=== PATIENT | male | born 1970 | race Caucasian/White ===

== ENCOUNTER → 2017-08-15 | Outpatient (CLI) | payer OTHER ==
[2017-08-15 08:06] LABS: Blood Urea Nitrogen 17 mg/dL (9-20)
--- NOTE | 2017-08-15 10:42 | CT ---
EXAMINATION TYPE: CT abdomen pelvis w con DATE OF EXAM: 08/15/2017 COMPARISON: NONE HISTORY: Gross Hematuria CT DLP: 833.8 mGycm, Automated Exposure Control for Dose Reduction was Utilized. CONTRAST: CT scan of the abdomen and pelvis is performed with oral and with IV Contrast, patient injected with 100 mL of Isovue 300. FINDINGS: LUNG BASES: No significant abnormality is appreciated. LIVER/GB: No significant abnormality is appreciated. PANCREAS: No significant abnormality is seen. SPLEEN: No significant abnormality is seen. ADRENALS: No significant abnormality is seen. KIDNEYS: There is partially exophytic heterogeneous enhancing solid mass laterally lower pole level r ight kidney measuring roughly 9.0 x 7.8 cm axial image 38, craniocaudal dimension is roughly 7.5 cm c oronal image 61 consistent with renal cell carcinoma. There is symmetric cortical medullary uptake an d excretion from both kidneys without evidence of hydronephrosis bilaterally. No intraluminal mass in the bladder is present. Some prominent collateral vessels probable draining veins inferior to right kidney are noted. BOWEL: Oral contrast does not reach colonic level. There is fecal material in distal and terminal ile um consistent with delayed passage of ingested material 2 colonic level. There is no suspicious small or large bowel dilatation. There is mild prominence of fecal material in the right and transverse co bhavani. PROSTATE/SEMINAL VESICLES: No gross abnormality seen. LYMPH NODES: No greater than 1cm abdominal or pelvic lymph nodes are appreciated. OSSEOUS STRUCTURES: There is mild facet arthropathy lower lumbar levels. OTHER: No significant additional abnormality is seen. IMPRESSION: Large hypervascular solid lower pole lateral right renal mass consistent with renal cell carcinoma. Surgical referral advised. A Yellow level critical message alert has been initiated for Kenan Foreman MD via the [employer] Critical Results System on 08/15/2017 10:40 AM. This message alert has been sent to Kenan Foreman MD via the preferences provided by the clinician for the receipt of Radiology Critical Findings. Mess age ID [id number].
== END | disposition home or self-care (01) ==
LOC: RADCTMAIN 06:55
PROVIDERS: ATTEND Urology
DX: N28.89 Other specified disorders of kidney and ureter (principal)
CPT/HCPCS: 82565; 84520; 74177; 36415; Q9967

== ENCOUNTER → 2017-08-30 | Outpatient (CLI) | payer OTHER ==
[2017-08-30 08:32] LABS: Basophils % (A) 0 %; Eosinophils # (A) 0.2 k/uL (0-0.7); Eosinophils % (A) 2 %; HCT 48.4 % (39.0-53.0); HGB 15.8 gm/dL (13.0-17.5); Lymphocytes # (A) 1.4 k/uL (1.0-4.8); Lymphocytes % (A) 19 %; MCH 28.3 pg (25.0-35.0); MCHC 32.5 g/dL (31.0-37.0); MCV 87.1 fL (80.0-100.0); Mean Platelet Volume 7.1; Monocytes # (A) 0.5 k/uL (0-1.0); Monocytes % (A) 7 %; Neutrophils # (A) 5.4 k/uL (1.3-7.7); Neutrophils % (A) 70 %; Platelet Count 211 k/uL (150-450); RBC 5.56 m/uL (4.30-5.90); RDW 13.5 % (11.5-15.5); WBC 7.7 k/uL (3.8-10.6)
--- NOTE | 2017-08-30 09:03 | XR ---
EXAMINATION TYPE: XR chest 2V DATE OF EXAM: 08/30/2017 COMPARISON: NONE HISTORY: Renal mass TECHNIQUE: Frontal and lateral views of the chest are obtained. FINDINGS: There is no focal air space opacity, pleural effusion, or pneumothorax seen. The cardiac silhouette size is within normal limits. The osseous structures are intact. IMPRESSION: No acute cardiopulmonary process.
[2017-08-30 09:24] LABS: ALT 28 U/L (21-72); AST 23 U/L (17-59); Albumin 4.4 g/dL (3.5-5.0); Alkaline Phosphatase 60 U/L (38-126); Anion Gap 14 mmol/L; Blood Urea Nitrogen 20 mg/dL (9-20); Calcium 9.4 mg/dL (8.4-10.2); Carbon Dioxide 24 mmol/L (22-30); Chloride 101 mmol/L (98-107); Glucose 86 mg/dL (74-99); Potassium 4.5 mmol/L (3.5-5.1); Sodium 139 mmol/L (137-145); Total Bilirubin 0.4 mg/dL (0.2-1.3); Total Protein 6.8 g/dL (6.3-8.2)
== END | disposition home or self-care (01) ==
LOC: LABPAT 07:15
PROVIDERS: ATTEND Urology
DX: Z01.818 Encounter for other preprocedural examination (principal); Z01.812 Encounter for preprocedural laboratory examination; D41.01 Neoplasm of uncertain behavior of right kidney; N28.89 Other specified disorders of kidney and ureter
CPT/HCPCS: 71046; 80053; 85025; 86850; 86900; 86901; 93005

== ENCOUNTER 2017-09-07 10:38 | Inpatient (IN) | payer OTHER ==
[2017-08-26 09:35] VITALS: BMI 27.9
--- NOTE | 2017-09-07 06:59 | P.GSHP ---
History of Present Illness H&P Date: 09/07/17 Chief Complaint: Gross hematuria The patient is a 47 year old male who presented with gross hematuria, associated with right-sided low back discomfort. The hematuria has resolved. CT scan shows a 9 cm right lower pole renal mass, consistent with renal cell carcinoma. - Constitutional Constitutional: Denies chills, Denies fever - Cardiovascular Cardiovascular: Denies chest pain, Denies shortness of breath - Gastrointestinal Gastrointestinal: Denies nausea, Denies vomiting - Genitourinary (Female) Genitourinary: Reports as per HPI Past Medical History Past Medical History: Skin Disorder Additional Past Medical History / Comment(s): hx psoriasis, tumor in rt kidney History of Any Multi-Drug Resistant Organisms: None Reported Past Surgical History: Orthopedic Surgery Additional Past Surgical History / Comment(s): titanium elida rt leg (fx) Past Anesthesia/Blood Transfusion Reactions: No Reported Reaction Smoking Status: Former smoker - Past Family History Mother Family Medical History: No Reported History Medications and Allergies Home Medications Medication Instructions Recorded Confirmed Type No Known Home Medications 08/26/17 08/26/17 History Allergies Allergy/AdvReac Type Severity Reaction Status Date / Time No Known Allergies Allergy Verified 08/26/17 09:26 Surgical - Exam - General well developed, well nourished, no distress - Neck no masses, trachea midline - Respiratory normal respiratory effort, clear to auscultation - Cardiovascular Rhythm: regular Abnormal Heart Sounds: no systolic murmur - Abdomen Abdomen: soft, non tender, no guarding, no rigid, no rebound Hernia: none - Genitourinary normal penis with no external lesions, testicles non-tender - Rectum Rectum: normal sphincter tone, no masses - Neurologic normal coordination - Musculoskeletal normal gait - Psychiatric oriented to time, oriented to person, oriented to place, speech is normal, memory intact Results - Imaging CT scan - abdomen: report reviewed, image reviewed Assessment and Plan (1) Right renal mass Status: Acute Code(s): N28.89 - OTHER SPECIFIED DISORDERS OF KIDNEY AND URETER SNOMED Code(s): 002414715 Plan: I discussed the reasoning behind doing an open right nephrectomy. It does not appear necessary to remove the adrenal gland. I explained the procedure in detail, as well as the possible complications of this surgical procedure. These complications include anesthesia, bleeding, wound infection, bowel injury , post-op ileus, bowel obstruction, and chylous ascites. I also discussed the consideration of decreased renal function on a short-term and long-term basis. The patient expressed an understanding.
[~2017-09-07 10:38] MED LIST: DEXAMETHASONE SOD PHOSPHATE 10 MG/ML 1 ML VIAL IV ONE; MIDAZOLAM 2 MG/2 ML VIAL IV PRN; ONDANSETRON 4 MG/2 ML VIAL IVP ONE; SCOPOLAMINE 1.5MG/72HR PATCH TRANSDERM ONE; ceFAZolin 1,000 MG in DEXTROSE/WATER 1 50ML.BAG IV ONE; fentaNYL (PF) 50 MCG/ML 2 ML AMP IV PRN
[2017-09-07] MEDS: LACTATED RINGERS 1,000 ML IV SCH (11:11)
[2017-09-07] MEDS ORDERED: LIDOCAINE 1% 20 ML VIAL (10MG/ML) FOR IV START INTRADERMA ONE (11:11)
[2017-09-07] MEDS ORDERED: NALOXONE 0.4 MG/ML 1 ML VIAL IV PRN (11:14)
[2017-09-07] MEDS ORDERED: fentaNYL (PF) 50 MCG/ML 2 ML AMP IVP ONE ×2 (11:20→11:21)
[2017-09-07] MEDS ORDERED: LIDOCAINE 1% INJ 10MG/ML (20 ML MDV) ONE (12:13)
[2017-09-07] MEDS ORDERED: fentaNYL (PF) 50 MCG/ML 2 ML AMP ONE (12:13)
[2017-09-07] MEDS ORDERED: GLYCOPYRROLATE 0.2 MG/ML 2 ML VIAL ONE (12:13)
[2017-09-07] MEDS ORDERED: NEOSTIGMINE 1 MG/ML 10 ML VIAL ONE (12:13)
[2017-09-07] MEDS ORDERED: PROPOFOL 10 MG/ML 20 ML VIAL IV ONE (12:13)
[2017-09-07] MEDS ORDERED: MIDAZOLAM 2 MG/2 ML VIAL ONE (12:13)
[2017-09-07] MEDS ORDERED: ROCURONIUM BROMIDE 10 MG/ML 10 ML VIAL IV ONE (12:13)
[2017-09-07] MEDS ORDERED: LACTATED RINGERS 1,000 ML IV ONE ×2 (12:45→14:13)
--- NOTE | 2017-09-07 15:11 | P.OP ---
Date of Procedure: 09/07/17 Preoperative Diagnosis: Right renal mass Postoperative Diagnosis: Same Procedure(s) Performed: Right radical nephrectomy Anesthesia: GETA, epidural Surgeon: Kenan Foreman Injection Molding Machine Operator #1: Lane Avila Estimated Blood Loss (ml): 800 IV fluids (ml): 1,950 Pathology: other (Right kidney) Condition: stable Disposition: PACU Indications for Procedure: The patient is a 47-year-old male who recently presented with gross hematuria, associated with lower back discomfort. The computed tomography scan shows a 9 cm right lower pole solid renal mass, consistent with renal cell carcinoma, and he now comes for a radical nephrectomy. Operative Findings: Right lower pole renal mass. Extensive neovascularity. Description of Procedure: The patient was taken to the operating room and placed in the supine position. A [place]o catheter was placed sterilely. The abdomen was prepped and draped sterilely. The scalpel was used to make a right-sided chevron incision. Bovie electrocautery was used to incise each individual muscle layer of the anterior abdominal wall, down to the peritoneum. The peritoneum was carefully opened, and the peritoneal incision was then extended the full length of the abdominal incision. The abdomen was examined. The right lower pole renal mass was palpable. The liver appeared normal. No other abnormalities were identified. The peritoneum was incised at the line of Toldt, allowing the right hemicolon to be reflected medially. A Darnell maneuver was performed, exposing the inferior vena cava. The Bookwalter retractor was used for exposure. Dissection was performed along the lateral aspect of the inferior vena cava. Lymphoadipose tissue was clipped and divided. An enlarged lymph node was identified in this area, which was removed along with the surgical specimen. The renal hilum was exposed. The right renal vein bifurcated, and there was extensive neovascularity in this region. The lower pole mass caused the kidney to be pushed medially, such that the upper pole was in the way of a surgical plane alongside the vena cava cephalad to the hilum. Ultimately, a branch of the right renal artery was identified, isolated, and ligated with a 2-0 silk tie. Multiple branches of the renal vein were ligated and divided, and this was continued until there only remained in the main right renal vein and the upper pole branch of the renal artery. However, the artery was posterior and cephalad to the vein, and could not be isolated. Therefore, the main renal vein was ligated twice proximally and once distally prior to dividing it. It was then possible to isolate, ligate, and divide the remaining right renal artery. The dissection was then continued inferiorly along the inferior vena caval, down to the tail of Gerota's fascia. Lymphoadipose tissue was clipped prior to dividing it. The gonadal vein was ligated and divided, as was the ureter. The posterior dissection was performed bluntly, and lateral attachments were divided. Superiorly, the dissection was carried down to the kidney, preserving the adrenal gland. Superior attachments were clipped and divided, allowing removal of the surgical specimen. The wound was irrigated with warm sterile water. Hemostasis was noted to be excellent. The Bookwalter retractor was removed. The linea alba in the midline was closed using #1 Vicryl suture in an interrupted [id number] fashion. Each individual muscle layer of the anterior abdominal wall was then closed using #1 Vicryl suture in a running fashion. After ensuring excellent hemostasis within the subcutaneous tissues, the skin was closed using bethany. A sterile gauze dressing was applied to the incision. All sponge and needle counts were correct. The patient tolerated the procedure well was taken to the recovery room in stable condition.
[2017-09-07] MEDS: ROPIVACAINE 250 MG, HYDROMORPHONE (PF) 5 MG in SODIUM CHLORIDE 0.9% 200 ML EPIDURAL PRN ×2 (15:13→16:50)
[2017-09-07] MEDS ORDERED: diphenhydrAMINE 50 MG/ML 1 ML VIAL IVP ONE ×2 (15:45→16:45)
[2017-09-07] MEDS: diphenhydrAMINE 50 MG/ML 1 ML VIAL IVP PRN (20:00)
[2017-09-07] MEDS: DEXTROSE 5%-0.45% NACL 1,000 ML IV SCH (20:19)
[2017-09-07] MEDS: HEPARIN SODIUM,PORCINE 5,000 UNIT/ML 1 ML VIAL SQ SCH (20:53)
[2017-09-07] MEDS: ROPIVACAINE 250 MG in SODIUM CHLORIDE 0.9% 200 ML EPIDURAL PRN (20:59)
[2017-09-08] MEDS: diphenhydrAMINE 50 MG/ML 1 ML VIAL IVP PRN ×2 (00:51→05:30)
[2017-09-08] MEDS: DEXTROSE 5%-0.45% NACL 1,000 ML IV SCH ×3 (05:41→22:20)
[2017-09-08] MEDS: LACTATED RINGERS 1,000 ML IV SCH (06:07)
--- NOTE | 2017-09-08 07:19 | P.PN ---
Progress Note - Text Progress Note Date: 09/08/17 47-year-old male status post right nephrectomy, postop day #1, catheter day #2. Patient doing well today, still nothing by mouth, pain is 1/10 severity. Patient does state that he has some pruritus, but no motor weakness, no sensory deficits. Patient has not been ambulating yet, plan is likely to ambulate today. Plan: Continue epidural, at current settings.
[2017-09-08 07:36] LABS: Basophils % (A) 0 %; Eosinophils # (A) 0.1 k/uL (0-0.7); Eosinophils % (A) 1 %; Lymphocytes # (A) 1.4 k/uL (1.0-4.8); Lymphocytes % (A) 13 %; MCH 28.7 pg (25.0-35.0); MCHC 32.5 g/dL (31.0-37.0); MCV 88.1 fL (80.0-100.0); Mean Platelet Volume 7.1; Monocytes # (A) 0.9 k/uL (0-1.0); Monocytes % (A) 8 %; Neutrophils # (A) 8.2 k/uL (1.3-7.7); Neutrophils % (A) 76 %; Platelet Count 211 k/uL (150-450); RBC 4.43 m/uL (4.30-5.90); RDW 13.7 % (11.5-15.5); WBC 10.8 k/uL (3.8-10.6)
[2017-09-08 07:37] LABS: HGB 12.7 gm/dL (13.0-17.5)
[2017-09-08] MEDS: HEPARIN SODIUM,PORCINE 5,000 UNIT/ML 1 ML VIAL SQ SCH ×2 (08:11→22:19)
--- NOTE | 2017-09-08 09:13 | P.PN ---
Subjective Progress Note Date: 09/08/17 Principal diagnosis: POD #1, s/p right radical nephrectomy. Mr. Avilez reports diffuse pruritus. There is no obvious rash. He reports incisional discomfort only when he coughs. He is thirsty and requests coffee. Objective - Vital Signs Vital signs: Vital Signs Temp 98 F 09/07/17 17:30 Pulse 85 09/07/17 19:30 Resp 16 09/07/17 17:30 BP 115/67 09/07/17 19:30 Pulse Ox 95 09/07/17 17:30 Intake & Output 09/07/17 09/07/17 09/08/17 06:59 18:59 06:59 Intake Total 2919 900 Output Total 1175 950 Balance 1744 -50 Intake: IV 2919 Intake, IV Titration 900 Amount Dextrose 5%-0.45% NaCl 1, 900 000 ml @ 100 mls/hr IV . Q10H XOCHITL Rx#:[id number] Output: Urine 375 950 Estimated Blood Loss 800 Other: Voiding Method Indwelling Catheter - Constitutional General appearance: Present: average body habitus, no acute distress - Gastrointestinal Gastrointestinal Comment(s): Soft, non-distended. Dressing dry and intact. - Psychiatric Psychiatric: Present: A&O x's 3, appropriate affect - Labs CBC & Chem 7: 09/08/17 07:03 Assessment and Plan (1) Right renal mass Current Visit: Yes Status: Acute Code(s): N28.89 - OTHER SPECIFIED DISORDERS OF KIDNEY AND URETER SNOMED Code(s): 213512240 Plan: The patient is doing well overall. The cause of his pruritus is unclear. He will continue to receive Benadryl. The importance of coughing and deep breathing was stressed, and ambulation was encouraged. Clear liquid diet has been ordered.
[2017-09-08] MEDS: ACETAMINOPHEN IV (For NPO) 1,000 MG in EMPTY BAG 1 BAG IVPB PRN ×2 (09:24→17:23)
[2017-09-08] MEDS ORDERED: diphenhydrAMINE 25 MG CAP PO PRN (12:39)
[2017-09-08] MEDS: ACETAMINOPHEN TAB 325 MG TAB PO PRN ×2 (13:38→20:55)
[2017-09-08] MEDS: NALBUPHINE 10 MG/ML VIAL (10ML MDV) IV PRN ×2 (15:09→20:58)
[2017-09-08] MEDS: ROPIVACAINE 250 MG in SODIUM CHLORIDE 0.9% 200 ML EPIDURAL PRN (17:41)
[2017-09-09] MEDS: ACETAMINOPHEN TAB 325 MG TAB PO PRN ×2 (00:58→07:30)
[2017-09-09] MEDS: NALBUPHINE 10 MG/ML VIAL (10ML MDV) IV PRN ×3 (01:07→08:40)
[2017-09-09] MEDS: HYDROmorphone 0.5 MG/0.5 ML SYRINGE IVP PRN ×3 (01:09→08:40)
[2017-09-09] MEDS: LACTATED RINGERS 1,000 ML IV SCH (05:56)
--- NOTE | 2017-09-09 07:11 | P.PN ---
Progress Note - Text 08/30 707am 47-year-old male status post radical nephrectomy. Patient has epidural catheter for postop pain control with only ropivacaine because of his sensitivity to narcotics. The solution is running at 10 mL an hour but his pain score is 6-7 out of 10. Plan to dc epidural and start oral pain medications
[2017-09-09] MEDS: HEPARIN SODIUM,PORCINE 5,000 UNIT/ML 1 ML VIAL SQ SCH ×2 (10:06→20:03)
[2017-09-09] MEDS ORDERED: HYDROcodone/APAP 5-325MG 1 EACH TAB PO PRN (11:08)
[2017-09-09] MEDS: HYDROcodone/APAP 5-325MG 1 EACH TAB PO PRN ×4 (11:22→23:30)
--- NOTE | 2017-09-09 13:04 | P.PN ---
Subjective Progress Note Date: 09/09/17 Principal diagnosis: POD #2, s/p right radical nephrectomy. Mr. Avilez reports that his pruritus is improved. Appears that Dilaudid contributed to this. The epidural catheter without narcotics failed to provide adequate pain relief, and the epidural catheter was removed earlier today. He was recently given Knifley. He is tolerating clear liquid diet. He ambulated yesterday but has not today due to incisional discomfort. Objective - Vital Signs Vital signs: Vital Signs Temp 98.6 F 09/09/17 07:00 Pulse 75 09/09/17 08:00 Resp 18 09/09/17 08:00 BP 110/71 09/09/17 07:00 Pulse Ox 96 09/09/17 07:00 Intake & Output 09/08/17 09/09/17 09/09/17 18:59 06:59 18:59 Intake Total 207 480 Output Total 4350 Balance -4143 480 Weight 88.451 kg Intake: Intake, IV Titration 207 Amount Ropivacaine 250 mg In 207 Sodium Chloride 0.9% 200 ml @ Per Protocol EPIDURAL .Q0M PRN Rx#: [id number] Oral 480 Output: Urine 4350 Uretheral ([place]o) 1400 Other: Voiding Method Indwelling Catheter Indwelling Catheter - Constitutional General appearance: Present: average body habitus, cooperative, no acute distress - Gastrointestinal General gastrointestinal: Present: soft. Absent: distended (Incision clean and dry.) - Labs CBC & Chem 7: 09/08/17 07:03 Assessment and Plan (1) Right renal mass Current Visit: Yes Status: Acute Code(s): N28.89 - OTHER SPECIFIED DISORDERS OF KIDNEY AND URETER SNOMED Code(s): 103361331 Plan: The patient is doing well overall. He will continue to take Knifley as needed for analgesia. I have stressed the benefit of ambulation. The [place] catheter will be removed, and diet will be advanced as tolerated. Discharge home within 1-2 days is anticipated.
[2017-09-09] MEDS: DEXTROSE 5%-0.45% NACL 1,000 ML IV SCH ×2 (14:16→19:30)
[2017-09-09 19:37] VITALS: RESP 16
[2017-09-09] MEDS ORDERED: MAG HYDROX/AL HYDROX/SIMETH 30 ML CUP PO PRN (19:59)
[2017-09-09] MEDS: DOCUSATE 100 MG CAP PO SCH (20:03)
[2017-09-10] MEDS: HYDROcodone/APAP 5-325MG 1 EACH TAB PO PRN ×2 (03:55→08:31)
[2017-09-10] MEDS: LACTATED RINGERS 1,000 ML IV SCH (03:55)
[2017-09-10] MEDS: DEXTROSE 5%-0.45% NACL 1,000 ML IV SCH (03:55)
[2017-09-10] MEDS: HEPARIN SODIUM,PORCINE 5,000 UNIT/ML 1 ML VIAL SQ SCH (08:31)
[2017-09-10] MEDS: DOCUSATE 100 MG CAP PO SCH (08:31)
--- NOTE | 2017-09-10 08:47 | P.DS ---
Providers Date of admission: 09/07/17 10:38 Expected date of discharge: 09/10/17 Attending physician: Kenan Foreman Primary care physician: Bautista Renee - Discharge Diagnosis(es) (1) Right renal mass Current Visit: Yes Status: Acute Hospital Course: On the day of admission, the patient underwent an uncomplicated right radical nephrectomy. Postoperatively, he experienced significant pruritus, which was attributed to narcotics. The narcotics were removed from his epidural, which was ultimately removed on the second postoperative day. The patient was then placed on oral Laurel for analgesia. The pruritus resolved. At the time of discharge, the patient was tolerating diet and was ambulating well. He was passing flatus but had not had a bowel movement. Procedures: Right radical nephrectomy on 09/07/2017. Patient Condition at Discharge: Good Plan - Discharge Summary Discharge Rx Participant: Yes New Discharge Prescriptions: New Hydrocodone/Acetaminophen [Laurel 5-325] 2 each PO Q4HR PRN #20 tab PRN Reason: Pain Discharge Medication List Hydrocodone/Acetaminophen [Laurel 5-325] 2 each PO Q4HR PRN #20 tab 09/10/17 [Rx] Follow up Appointment(s)/Referral(s): Kenan Foreman MD [STAFF PHYSICIAN] - 1 Week Activity/Diet/Wound Care/Special Instructions: Okay to shower. Diet as tolerated. No lifting, driving, or strenuous activity. Discharge Disposition: HOME SELF-CARE
[2017-09-10 10:28] VITALS: BP 128/85; PULSE 64; TEMP 97.5
== END 2017-09-10 13:17 | disposition home or self-care (01) | DRG 658 ==
LOC: 2ORMAIN 10:38 → 3SUR 15:13
PROVIDERS: ADMIT Urology; ATTEND Urology
PROC: 0TT00ZZ Resection of Right Kidney, Open Approach (ICD-10-PCS; principal; 2017-09-07 12:00)
DX: C64.1 Malignant neoplasm of right kidney, except renal pelvis (principal); L29.9 Pruritus, unspecified; T40.2X5A Adverse effect of other opioids, initial encounter; Y92.230 Patient room in hospital as the place of occurrence of the external cause; R31.0 Gross hematuria; Z87.891 Personal history of nicotine dependence; L40.9 Psoriasis, unspecified
CPT/HCPCS: 85025; 86850; 86900; 86901; 88305; 88307

== ENCOUNTER → 2018-04-04 | Outpatient (CLI) | payer OTHER ==
--- NOTE | 2018-04-04 10:20 | XR ---
EXAMINATION TYPE: XR chest 2V DATE OF EXAM: 04/04/2018 COMPARISON: Prior chest x-ray 08/30/2017 HISTORY: Kidney cancer TECHNIQUE: Frontal and lateral views of the chest are obtained. FINDINGS: There is no focal air space opacity, pleural effusion, or pneumothorax seen. The cardiac silhouette size is within normal limits. The osseous structures are intact. Surgical clips in the r etroperitoneum compatible with patient's history of nephrectomy. IMPRESSION: No acute cardiopulmonary process.
[2018-04-04 11:13] LABS: Albumin 4.6 g/dL (3.5-5.0); Calcium 10.1 mg/dL (8.4-10.2); Potassium 5.1 mmol/L (3.5-5.1); Total Bilirubin 0.6 mg/dL (0.2-1.3); Total Protein 7.6 g/dL (6.3-8.2)
== END | disposition home or self-care (01) ==
LOC: RADXRMAIN 09:28
PROVIDERS: ATTEND Urology
DX: C64.1 Malignant neoplasm of right kidney, except renal pelvis (principal)
CPT/HCPCS: 36415; 71046; 80053

== ENCOUNTER → 2018-11-01 | Outpatient (CLI) | payer OTHER ==
--- NOTE | 2018-11-01 12:04 | XR ---
EXAMINATION TYPE: XR chest 2V DATE OF EXAM: 11/01/2018 COMPARISON: 04/04/2018 TECHNIQUE: PA and lateral views submitted. HISTORY: HX OF KIDNEY CANCER, FOLLOW UP FROM KIDNEY REMOVAL FINDINGS: The lungs are clear and there is no pneumothorax, pleural effusion, or focal pneumonia. Pleural thi ckening noted. No overt failure. Surgical clips in the abdomen. IMPRESSION: 1. No acute process.
--- NOTE | 2018-11-01 18:46 | CT ---
EXAMINATION TYPE: CT abdomen wo con DATE OF EXAM: 11/01/2018 COMPARISON: 08/15/2017 INDICATION: Follow up renal cancer DLP: 392.1 mGycm, Automated exposure control for dose reduction was used. CONTRAST: 0 mL of Isovue 300. Study performed with Oral Contrast TECHNIQUE: Axial images were obtained from above the diaphragm to the iliac crests in the axial plane at 5 mm thick sections. Reconstructed images are reviewed on the computer in the coronal plane. FINDINGS: Limited CT sections are obtained the lung bases. The lung bases are clear. CT ABDOMEN: Liver: Normal Spleen: Normal Pancreas: Normal Adrenal glands: The adrenal glands are normal. Gallbladder: Normal Kidneys: Right kidney is surgically absent. No recurrent masses within the right renal bed are eviden t. The left kidney appears normal without masses or cysts or hydronephrosis. No renal stones are evid ent on the left. Aorta: Vascular calcification is within the aorta. Inferior vena cava: Normal. Visualized loops of bowel within the abdomen and pelvis are normal. IMPRESSIONS: 1. No suspicious changes to suggest recurrent or metastatic renal cancer.
== END | disposition home or self-care (01) ==
LOC: RADCTMAIN 11:34
PROVIDERS: ATTEND Urology
DX: C64.1 Malignant neoplasm of right kidney, except renal pelvis (principal)
CPT/HCPCS: 71046; 74150

== ENCOUNTER → 2019-04-27 | Outpatient (CLI) | payer OTHER ==
--- NOTE | 2019-04-27 13:30 | XR ---
EXAMINATION TYPE: XR chest 2V DATE OF EXAM: 04/27/2019 COMPARISON: Prior chest x-ray 11/01/2018 and 08/30/2017 HISTORY: C 64.1, history of renal cancer TECHNIQUE: Frontal and lateral views of the chest are obtained. FINDINGS: Question nodularity in the perihilar region, left lower lung. There is no pleural effusion or pneumothorax seen. The cardiac silhouette size is within normal limits. The osseous structures are intact. Surgical clips are present in the retroperitoneum. IMPRESSION: Possible lung nodules, consider chest CT A Yellow level critical message alert has been initiated for Kenan Foreman MD via the [employer] Critical Results System on 04/27/2019 1:27 PM. This message alert has been sent to Therese Ponce via the preferences provided by the clinician for the receipt of Radiology Critical Findings. [place] Y[employer]pee Arts ID [id number].
[2019-04-27 18:25] LABS: African American GFR (CKD) 68.4 (60.0-200.0); Albumin 4.9 g/dL (3.80-4.90); Albumin/Globulin Ratio 2.13 (1.60-3.17); Anion Gap 9.7 mmol/L (4.00-12.00); BUN/Creat Ratio 17.14 Ratio (12.00-20.00); Calcium 9.9 mg/dL (8.7-10.3); Carbon Dioxide 26.3 mmol/L (21.6-31.8); Globulin 2.3 g/dL (1.6-3.3); Potassium 4.6 mmol/L (3.5-5.5); Total Bilirubin 0.6 mg/dL (0.3-1.2); Total Protein 7.2 g/dL (6.2-8.2)
== END | disposition home or self-care (01) ==
LOC: LABWHC1 12:54
PROVIDERS: ATTEND Urology
DX: C64.1 Malignant neoplasm of right kidney, except renal pelvis (principal)
CPT/HCPCS: 36415; 71046; 80053

== ENCOUNTER → 2019-05-04 | Outpatient (CLI) | payer OTHER ==
--- NOTE | 2019-05-04 17:05 | CT ---
EXAMINATION TYPE: CT chest wo con DATE OF EXAM: 05/04/2019 COMPARISON: Chest x-ray 04/27/2019 HISTORY: abnormal cxr CT DLP: 397.2 mGycm, Automated exposure control for dose reduction was used. CONTRAST: Performed injected with 0 mL of Isovue 300. TECHNIQUE: Axial images were obtained at 5 mm thick sections. Reconstructed images are reviewed on [employer] computer in the coronal plane. FINDINGS: Portion of the thyroid visualized is normal. There is a 0.7 cm nodule medial right apex. Very subtle nodularity may be at the left upper lobe inder uring 0.4 cm. Series 4 image 13. There is a 0.6 cm nodule left lateral upper lung field. Series 4 erasmo ge 18 there is a punctate peripheral density in the posterior lateral right upper lobe possible nodul e more anterior. Series 4 image 19 small posterior nodule medial left upper lung field measures 0.5 c m. Series 4 image 20. Punctate peripheral nodularities in the anterior lateral right midlung. Series 4 image 23. Along the major fissure is a 0.8 cm density, this could correspond to the finding at the hilar region on the chest x-ray. Series 4 image 25. There is a nodule within the lingula measuring 0. 7 cm. Series 4 image 34. No enlarged mediastinal or hilar adenopathy is evident. The ascending aorta diameter at the level o f the main pulmonary artery is 3.6 cm. The main pulmonary artery diameter at the bifurcation is 2.[address] sections are obtained through the upper abdomen. Abdomen is essentially unremarkable. Surg ical clips are at the right renal bed from the prior nephrectomy. No recurrent masses are within the [id number]. IMPRESSIONS: 1. Multiple nodules present bilaterally couple of these are larger than 6 mm. PET/CT may be useful fo r additional evaluation. Metastatic disease is not excluded.
== END | disposition home or self-care (01) ==
LOC: RADCTMAIN 15:55
PROVIDERS: ATTEND Urology
DX: C64.1 Malignant neoplasm of right kidney, except renal pelvis (principal); R91.8 Other nonspecific abnormal finding of lung field
CPT/HCPCS: 71250